=== PATIENT | male | born 1995 | race Caucasian/White ===

== ENCOUNTER 2017-10-17 17:19 | Emergency (ER) | payer MEDICAID ==
[~2017-10-17] VITALS: Ht 172.7 cm; Wt 53.4 kg
[2017-10-17 17:28] VITALS: BP 120/78
== END 2017-10-17 18:22 | disposition home or self-care (01) ==
LOC: ED 18:15
DX: M79.641 Pain in right hand (principal); Z76.0 Encounter for issue of repeat prescription; W18.39XD Other fall on same level, subsequent encounter
CPT/HCPCS: 99283

== ENCOUNTER 2017-10-28 10:45 | Emergency (ER) | payer MEDICAID ==
[~2017-10-28] VITALS: Ht 172.7 cm; Wt 54.0 kg
[2017-10-28 10:48] VITALS: BP 110/76
== END 2017-10-28 13:54 | disposition home or self-care (01) ==
LOC: ED 13:53
DX: S62.356A Nondisplaced fracture of shaft of fifth metacarpal bone, right hand, initial encounter for closed fracture (principal); K02.9 Dental caries, unspecified; F17.210 Nicotine dependence, cigarettes, uncomplicated; X58.XXXA Exposure to other specified factors, initial encounter; Y93.89 Activity, other specified; Y92.89 Other specified places as the place of occurrence of the external cause; Y99.9 Unspecified external cause status
CPT/HCPCS: 99284

== ENCOUNTER 2017-11-03 10:41 | Emergency (ER) | payer MEDICAID ==
[~2017-11-03] VITALS: Ht 172.7 cm; Wt 52.6 kg
[2017-11-03 10:57] VITALS: BP 108/72
== END 2017-11-03 12:47 | disposition left against medical advice (07) ==
LOC: ED 11:55
DX: Z53.21 Procedure and treatment not carried out due to patient leaving prior to being seen by health care provider (principal)
CPT/HCPCS: 93005